=== PATIENT | female | born 1965 | race Two or more races ===

== ENCOUNTER 2024-01-11 13:40 | Emergency (ER) | payer MEDICAID, OTHER ==
[~2024-01-11] VITALS: Ht 149.9 cm; Wt 50.6 kg
[2024-01-11 15:34] VITALS: BP 130/70; PULSE 97; RESP 16; TEMP 99; O2SAT 98
[2024-01-11] MEDS ORDERED: NAPR-746 PO (15:57)
[2024-01-11] MEDS ORDERED: AMOX500T86 PO (15:57)
[2024-01-11] MEDS: LIDOCAINE 1% HCL (LOCAL ANESTH.) INJ 20ML MDV IJ ONE (15:58)
== END 2024-01-11 16:07 | disposition home or self-care (01) ==
LOC: ER 13:40
DX: S51.811A Laceration without foreign body of right forearm, initial encounter (principal); W54.0XXA Bitten by dog, initial encounter; Y93.89 Activity, other specified; Y92.89 Other specified places as the place of occurrence of the external cause; Y99.8 Other external cause status
CPT/HCPCS: 12002; 99283; J2001

== ENCOUNTER 2024-02-25 14:52 | Emergency (ER) | payer MEDICAID ==
[~2024-02-25] VITALS: Ht 149.9 cm; Wt 51.1 kg
[~2024-02-25 14:52] MED LIST: AMOX500T86 PO; NAPR-746 PO
--- NOTE | 2024-02-25 15:46 | DVH ---
CLINICAL INDICATION: FALL, trauma, pain TECHNIQUE: XY L WRIST 3+ VIEW XRAY Comparison: None FINDINGS/IMPRESSION: Displaced and comminuted fracture of the distal radial metaphysis. Possible intra-articular extension to the radiocarpal joint space. Displaced fracture of the styloid process of the ulna.
[2024-02-25 15:55] VITALS: BP 144/74; PULSE 74; RESP 19; TEMP 98.4; O2SAT 100
[2024-02-25] MEDS: HYDROcodone-ACET 5/325MG TAB PO ONE (15:57)
--- NOTE | 2024-02-25 16:00 | ED.PDOC ---
Musculoskeletal HPI Comments A 58 YEAR OLD FEMALE PRESENTS TO THE ED WITH COMPLAINT OF LEFT WRIST PAIN S/P FALL. 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 PATIENT REPORTS SHE IS NOW EXPERIENCING LEFT WRIST PAIN AND SWELLING THAT IS WORSE WITH MOVEMENT. PATIENT DENIES HEAD INJURY, NECK INJURY, LOC, FEVER, CHILLS, SHORTNESS OF BREATH, CHEST PAIN, ABDOMINAL PAIN, NAUSEA, VOMITING, HEADACHE, OR OTHER COMPLAINTS. NO OTHER SYMPTOMS OR MODIFYING FACTORS AT THIS TIME. PATIENT IS ALERT, ORIENTED X 4, AND HAS STEADY GAIT. ALSO, PT REQUESTS ASTHMA MEDICATION REFILL. Chief Complaint: Upper Extremity Time Seen by MD: 15:02 Reviewed Notes: Nurses Notes, Medications, Allergies Allergies: Coded Allergies: NO KNOWN ALLERGIES (Unverified , 01/11/24) Home Meds Active Scripts Albuterol Sulfate (Albuterol Sulfate Hfa) 108 Mcg/Act Aer, 108 MCG IN TID, #120 AER Prov:YUE ROCKWELL 02/25/24 Acetaminophen (Tylenol 8 Hour Arthritis) 650 Mg Tab, 650 MG PO TID, #30 TAB Prov:YUE ROCKWELL 02/25/24 Naproxen (Naproxen) 500 Mg Tab, 500 MG PO BID, #30 TAB Prov:YUE ROCKWELL 01/11/24 Amoxicillin & Pot Clavulanate (Augmentin) 500 Mg Tab, 1 TAB PO BID, #20 TAB Prov:YUE ROCKWELL 01/11/24 Information Source: Patient Mode of Arrival: Ambulatory Location: Left Extremity Location: Wrist Timing: Hours Prehospital treatment: None Severity: Moderate Able to Move Extremity: Yes Bear Weight: Fully Pain: Moderate Mechanism: Blunt Trauma Circumstances: Fall Onset of Symptoms: After Trauma Symptoms: Swelling, Pain DVT Risk Factors: NONE Last Tetanus: UTD Associated signs and symptoms: Wrist pain Past Medical History PAST MEDICAL HISTORY: Asthma Surgical History: Denies all surgeries KNOCKDOWN WORKER History: No Pertinent KNOCKDOWN WORKER History Family History Family History: Reviewed,noncontributory to illness Social History Smoker: Non-Smoker Alcohol: Denies ETOH Use Drugs: Denies Drug Use Lives In: Home Constitutional: denies: chills, diaphoresis, fatigue, fever, malaise, sweats, weakness, others EENTM: denies: blurred vision, double vision, ear bleeding, ear discharge, ear drainage, ear pain, ear ringing, eye pain, eye redness, hearing loss, mouth pain, mouth swelling, nasal discharge, nose bleeding, nose congestion, nose pain, photophobia, tearing, throat pain, throat swelling, voice changes, others Respiratory: denies: cough, hemoptysis, orthopnea, SOB at rest, shortness of breath, SOB with excertion, stridor, wheezing, others Cardiovascular: denies: chest pain, dizzy spells, diaphoresis, Dyspnea on exertion, edema, irregular heart beat, left arm pain, lightheadedness, palpitations, PND, syncope, others Gastrointestinal: denies: abdomen distended, abdominal pain, blood streaked bowels, constipated, diarrhea, dysphagia, difficulty swallowing, hematemesis, melena, nausea, poor appetite, poor fluid intake, rectal bleeding, rectal pain, vomiting, others Genitourinary: denies: abnormal vagina bleeding, burning, dyspareunia, dysuria, flank pain, frequency, hematuria, incontinence, pain, , vagina discharge, urgency, others Neurological: denies: dizziness, fainting, headache, left sided numbness, left sided weakness, numbness, paresthesia, pre-existing deficit, right sided numbness, right sided weakness, seizure, speech problems, tingling, tremors, weakness, others Musculoskeletal: reports: joint pain, joint swelling, others (LEFT WRIST PAIN WITH SWELLING); denies: back pain, gout, muscle pain, muscle stiffness, neck pain Integumetry: denies: bruises, change in color, change in hair/nails, dryness, laceration, lesions, lumps, rash, wounds, others Allergic/Immunocompromised: denies: Difficulty Healing, Frequent Infections, Hives, Itching, others Hematologic/Lymphatic: denies: anemia, blood clots, easy bleeding, easy bruising, swollen glands, others Endocrine: denies: excessive hunger, excessive sweating, excessive thirst, excessive urination, flushing, intolerance to cold, intolerance to heat, unexplained weight gain, unexplained weight loss, others Psychiatric: denies: anxiety, bipolar disorder, depression, hopeless, panic disorder, schizophrenia, sleepless, suicidal, others All Other Systems: Reviewed and Negative Physical Exam General Appearance: No Apparent Distress, Normal HEENT: Normal ENT Inspection, PERRL/EOMI, Pharynx Normal, TMs Normal Neck: Full Range of Motion, Non-Tender, Normal, Normal Inspection Respiratory: Chest Non-Tender, Lungs Clear, No Accessory Muscle Use, No Respiratory Distress, Normal Breath Sounds Cardiovascular: No Edema, No JVD, No Murmur, No Gallop, Normal Peripheral Pul ses, Regular Rate/Rhythm Breast Exam: Deferred Gastrointestinal: No Organomegaly, Non Tender, No Pulsatile Mass, Normal Bowel Sounds, Soft Genitalia: Deferred Pelvic: Deferred Rectal: Deferred Extremities: Decreased range of motion, No calf tenderness, Normal capillary refill, No pedal edema, Swelling (BONY TENDERNESS, SWELLING AND DEFORMITY ON LEFT WRIST, NO OPEN WOUND SEEN. ), Tender (BONY TENDERNESS, SWELLING AND DEFORMITY ON LEFT WRIST, NEUROVASCULAR INTACT. ) Musculoskeletal : Apperance: Normal Neurologic: Alert, telecommunications administrator II-XII nml as Tested, No Motor Deficits, Normal Affect, Normal Mood, No Sensory Deficits Cerebellar Function: Normal Reflexes: Normal Skin: Dry, Normal Color, Warm Peripheral Pulses: 2+ carotid (R), 2+ carotid (L), 2+ dorsalis pedis (R), 2+ dorsalis pedis (L) Lymphatic: No Adenopathy Was a procedure done? Was a procedure done?: Yes Sedation Sedation?: No Reduction Indication: Fracture (AND DISPLACED FX ) Intra-articular anesthetic talya: No Post-reduction x-ray show: Reduction, Good Alignment Informed consent obtained: No Risks/benefits/alt described: Yes Notes COUNTERPULLING AND MANIPULATION WAS DONE TO THE PATIENT'S LEFT WRIST. A "CLICK" WAS HEARD AND DEFORMITY WAS SUCCESSFULLY REDUCED. PATIENT TOLERATED WELL. Differential Diagnosis EXT Differential Diagnosis: Fracture, Sprain, Dislocation, Contusion, Strain X-Ray, Labs, Meds, VS Vital Signs Date Time Temp Pulse Resp B/P (MAP) Pulse Ox O2 Delivery O2 Flow Rate FiO2 02/25/24 15:55 98.4 74 19 144/74 (97) 100 98.4 02/25/24 15:55 74 19 100 Room Air 02/25/24 15:04 98.4 74 19 144/74 (97) 100 Current Medications Medications (Trade) Dose Ordered Sig/Rashid Route Start Time Stop Time Status Last Admin Acetaminophen/ Hydrocodone Bitart ([place] 5/325MG Tab) 1 tab ONCE ONCE PO 02/25/24 15:45 02/25/24 15:46 DC 02/25/24 15:57 CLINICAL INDICATION: FALL, trauma, pain TECHNIQUE: XY L WRIST 3+ VIEW XRAY Comparison: None FINDINGS/IMPRESSION: Displaced and comminuted fracture of the distal radial metaphysis. Possible intra-articular extension to the radiocarpal joint space. Displaced fracture of the styloid process of the ulna. ATED BY: PRASANTH BARBOSA MD DICTATED DATE/TIME: 02/25/241541 SIGNED BY: PRASANTH BARBOSA MD SIGNED DATE/TIME: 02/25/241541 CC: CLINICAL INDICATION: POST REDUCTION TECHNIQUE: 2 radiographic views of the left wrist were obtained. Comparison: XY L WRIST 3+ VIEW XRAY on DOS: 02/25/24 FINDINGS/IMPRESSION: 2 views of the left wrist show satisfactory bony alignment postreduction film in a fiberglass cast. The visualized joint space is well maintained. The alignment is anatomical. There is no radiopaque foreign body. HS:Y ATED BY: RAQUEL CLEMENS Jr., DO DICTATED DATE/TIME: 02/25/241702 SIGNED BY: RAQUEL CLEMENS Jr., DO SIGNED DATE/TIME: 02/25/241702 CC: X-Ray, Labs, Meds, VS Comment TREATMENT: NORCO 5/325 MG P.O., SUGAR-TONG SPLINT APPLIED TO PATIENT'S LEFT WRIST ORTHOPEDIC: I HAVE CONSULTED THE ON-CALL INLETTER, DR. CASTILLO AND AFTER DISCUSSING THE PATIENT'S X RAY RESULTS AND SUCCESSFUL REDUCTION, I HAVE MADE THE PATIENT AN APPOINTMENT WITH HIS OFFICE ON Tuesday02/27/2024 AT 0830. Images Reviewed?: Images reviewed and evaluated by me Time of 1ST Reevaluation: 17:14 Reevaluation 1ST: Improved Consultation: Other (ORTHOPEDIC: I HAVE CONSULTED THE ON-CALL INLETTER, DR. CASTILLO AND AFTER DISCUSSING THE PATIENT'S X RAY RESULTS AND SUCCESSFUL REDUCTION, I HAVE MADE THE PATIENT AN APPOINTMENT WITH HIS OFFICE ON Tuesday02/27/2024 AT 0830.) Patient Education/Counseling: Diagnosis, Treatment, Need For Follow Up Family Education/Counseling: Diagnosis, Treatment, Need For Follow Up Medical Screening: No EMC Exist At This Time Departure 1 Departure Time of Disposition: 17:20 Impression: Primary Impression: Closed fracture of left distal radius Qualified Codes: S52.572A - Other intraarticular fracture of lower end of left radius, initial encounter for closed fracture Additional Impressions: Fracture of styloid process of left ulna Qualified Codes: S52.615A - Nondisplaced fracture of left ulna styloid process, initial encounter for closed fracture Encounter for medication refill Status post fall Disposition: HOME / SELF CARE / HOMELESS Condition: Stable Additional Instructions: FOLLOW-UP WITH DR. CASTILLO'S OFFICE ON Tuesday02/27/2024 AT 0830. TAKE MEDICATIONS PRESCRIBED. RETURN TO ED FOR ANY NEW OR WORSENING SYMPTOMS. e-Prescriptions Albuterol Sulfate (Albuterol Sulfate Hfa) 108 Mcg/Act Aer 108 MCG IN TID, #120 AER Prov: YUE ROCKWELL 02/25/24 Acetaminophen (Tylenol 8 Hour Arthritis) 650 Mg Tab 650 MG PO TID, #30 TAB Prov: YUE ROCKWELL 02/25/24 Discharged With: Self, Relative Critical Care Note Critical Care Time?: No Stability Stability form required: No I personally scribed for YUE ROCKWELL ([email or web address]) on 02/25/24 at 16:00. Electronically submitted by Karl Avalos ([email or web address]). I personally scribed for YUE ROCKWELL ([email or web address]) on 02/25/24 at 16:28. Electronically submitted by Karl Avalos ([email or web address]). I personally scribed for YUE ROCKWELL ([email or web address]) on 02/25/24 at 17:11. Electronically submitted by Karl Avalos ([email or web address]). I personally scribed for YUE ROCKWELL ([email or web address]) on 02/25/24 at 17:13. Electronically submitted by Karl Avalos ([email or web address]). YUE ROCKWELL Feb 25, 2024 16:00
--- NOTE | 2024-02-25 17:05 | DVH ---
CLINICAL INDICATION: POST REDUCTION TECHNIQUE: 2 radiographic views of the left wrist were obtained. Comparison: XY L WRIST 3+ VIEW XRAY on DOS: 02/25/24 FINDINGS/IMPRESSION: 2 views of the left wrist show satisfactory bony alignment postreduction film in a fiberglass cast. The visualized joint space is well maintained. The alignment is anatomical. There is no radiopaque foreign body. HS:Y
[2024-02-25] MEDS ORDERED: ALBU108A5 IN (17:12)
[2024-02-25] MEDS ORDERED: ACET-1080 PO (17:12)
== END 2024-02-25 17:16 | disposition home or self-care (01) ==
LOC: ER 14:52
DX: S52.592A Other fractures of lower end of left radius, initial encounter for closed fracture (principal); S52.692A Other fracture of lower end of left ulna, initial encounter for closed fracture; J45.909 Unspecified asthma, uncomplicated; Z79.899 Other long term (current) drug therapy; W18.39XA Other fall on same level, initial encounter; Y93.89 Activity, other specified; Y92.89 Other specified places as the place of occurrence of the external cause; Y99.8 Other external cause status
CPT/HCPCS: 25605; 73100; 73110